=== PATIENT | female | born 1970 | race Two or more races ===

== ENCOUNTER 2016-09-25 19:10 | Inpatient (IN) | payer MEDICAID ==
[~2016-09-25] VITALS: Ht 154.9 cm; Wt 63.5 kg
[~2016-09-25 19:10] MED LIST: AMITRIPTYLINE25 MG ORAL; ARTIFICIAL TEAR15 ML BOTH EYES; CATAPRES0.1 MG ORAL; CATAPRES0.1 MG PO; COLACE100 MG GT; COLACE100 MG ORAL; MIRALAX17 G2 ORAL; MOM30 ML PO; MORPHINE IR15 MG PO; MULTIVITAMINS1 EA11 PO; NITROSTAT0.4 M1 SL; TRAMADOL HCL50 MG PO; TYLENOL325 MG PO; TYLENOL650 MG/20. ORAL; UTI-STAT L3875 MG/31 PO; [UNRECOGNIZED DRUG - OTHER]
[2016-09-25] MEDS ORDERED: NS 1000ml 1,900 ML IVLG ONE (19:15)
--- NOTE | 2016-09-25 19:16 | Emergency Room Report ---
History of Present Illness General Chief Complaint: Abnormal Labs Source: Medical Record, EMS Present Illness HPI Is a 45-year-old female who has a history of CVA and is bed bound. She presents with abnormal lab per EMS and [facility] note, her WBC was 17,000. Patient able to give any other complaint. There is no noted fever chills but no noted coughing congestion. Allergies: Coded Allergies: No Known Allergies (Unverified , 07/09/13) Patient History Past Medical History: see triage record, old chart reviewed, CVA/TIA Past Surgical History: other Pertinent Family History: none Social History: Denies: smoking Immunizations: other Reviewed Nursing Documentation: PMH: Agreed, PSxH: Agreed Nursing Documentation-PMH Hx Cardiac Problems: Yes Hx Hypertension: Yes Hx Diabetes: Yes Hx Gastrointestinal Problems: Yes - GERD,G-tube History Of Psychiatric Problem: Yes - depression Hx Neurological Problems: Yes - skull defect, frontopareital craniectomy Hx Cerebrovascular Accident: Yes Hx Neurologic Surgery: Yes - skull defect, frontopareital craniectomy Review of Systems All Other Systems: limited - Secondary to patient condition. She is nonverbal. Physical Exam Vital Signs Date Time Temp Pulse Resp B/P Pulse Ox O2 Delivery O2 Flow Rate FiO2 09/25/16 19:01 99.3 94 19 116/74 95 Room Air vitals unremarkable [id number] EP Interpretation: reviewed, normal General Appearance: well appearing, no apparent distress, alert, Chronically Ill Head: normocephalic, atraumatic Eyes: bilateral eye EOMI, bilateral eye PERRL ENT: hearing 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, normal pharynx Neck: full range of motion, supple, no meningismus Respiratory: chest non-tender, lungs clear, normal breath sounds Cardiovascular #1: regular rate, rhythm, no murmur Gastrointestinal: normal bowel sounds, non tender, no mass, no organomegaly, no bruit, non-distended Musculoskeletal: back normal, other - Patient is contracted Skin: warm/dry Medical Decision Making Diagnostic Impression: Primary Impression: Acute UTI Additional Impressions: Sepsis Qualified Codes: A41.9 - Sepsis, unspecified organism Proteinuria Qualified Codes: R80.9 - Proteinuria, unspecified Hyperglycemia due to type 2 diabetes mellitus Qualified Codes: E11.65 - Type 2 diabetes mellitus with hyperglycemia ER Course This patient presents with abnormal lab and has UTI. She grew out Proteus mirabilis in 2013 that is resistant to oral medication. Sensitive to IV medication. I gave her a dose of Zosyn here. Blood sugar better after IV fluid. Lactic acid is 2. Will admit for IV fluid and antibiotics. I discussed the case with Dr. Quintanilla who will admit. No evidence of pyelonephritis or abscess. She appeared to be more alert after IV fluid and antibiotic. blood pressure normal. Lab Results Impression labs unremarkable except for elevated glucose Rhythm Strip Diag. Results EP Interpretation: yes Rate: 85 Rhythm: NSR, no PVC's, no ectopy, other Chest X-Ray Diagnostic Results Chest X-Ray Ordered: Yes # of Views/Limited/Complete: 1 View Interpretation: no consolidation, no effusion, no pneumothorax Indication: Other - Confusion Impression: No acute disease Date Electronically Signed: Sep 25, 2016 Time Electronically Signed: 21:47 Interpreting ER Physician: Tye Valentino MD Last Vital Signs Date Time Temp Pulse Resp B/P Pulse Ox O2 Delivery O2 Flow Rate FiO2 09/25/16 19:01 99.3 94 19 116/74 95 Room Air Status: improved Disposition: ADMITTED INPATIENT Condition: Serious TYE VALENTINO M.D. Sep 25, 2016 19:16
[2016-09-25 19:54] LABS: BASOPHILS % (AUTO) 0.7 % (0.0-2.0); EOSINOPHILS % (AUTO) 1.6 % (0.0-3.0); LYMPHOCYTES % (AUTO) 29.8 % (20.0-45.0); MEAN CORPUSCULAR HEMOGLOBIN 30.2 PG (27.0-31.0); MEAN CORPUSCULAR HGB CONC 32.9 G/DL (32.0-36.0); MEAN CORPUSCULAR VOLUME 92 FL (80-99); MONOCYTES % (AUTO) 5.3 % (1.0-10.0); NEUTROPHILS % (AUTO) 62.6 % (45.0-75.0); PLATELET COUNT 269 K/UL (150-450); RED BLOOD COUNT 4.65 M/UL (4.20-5.40); RED CELL DISTRIBUTION WIDTH 11.8 % (11.6-14.8); WHITE BLOOD COUNT 12.2 K/UL (4.8-10.8)
[2016-09-25 20:15] LABS: TROPONIN I < 0.30 ng/mL (<=0.30)
[2016-09-25 20:16] LABS: ALANINE AMINOTRANSFERASE 107 U/L (3-33); ANION GAP 18 (5-15); ASPARTATE AMINO TRANSFERASE 115 U/L (5-40); CALCIUM 9.5 mg/dL (8.6-10.2); CARBON DIOXIDE 24 mEQ/L (20-30); CHLORIDE 100 mEQ/L (98-107); CREATININE 0.7 mg/dL (0.5-0.9); GLOMERULAR FILTRATION RATE > 60 mL/min (>60); HEMOLYSIS 9; SODIUM 142 mEQ/L (135-145); TOTAL PROTEIN 8.7 g/dL (6.6-8.7)
[2016-09-25 20:21] LABS: INR 0.9 (0.9-1.1); PROTHROMBIN TIME 9.9 SEC (9.30-11.50)
[2016-09-25 20:24] LABS: REFLEX LACTIC ACID YES OR NO YES
[2016-09-25 20:26] LABS: CKMB < 1.5 ng/mL (< 3.8)
[2016-09-25 20:45] LABS: APPEARANCE,URINE SLIGHTLY CLOUDY; KETONES,URINE 2+ (NEGATIVE); LEUKOCYTE ESTERASE ,URINE 2+ (NEGATIVE); NITRITE,URINE POSITIVE (NEGATIVE); PH,URINE 6 (4.5-8.0); PROTEIN,URINE 3+ (NEGATIVE); UROBILINOGEN,URINE 4 MG/DL (0.0-1.0)
[2016-09-25 20:48] VITALS: BP 114/64
[2016-09-25] MEDS ORDERED: NS 110 ML ONE (20:55)
[2016-09-25] MEDS ORDERED: Tubing IV Cassette IV ONE (20:55)
[2016-09-25] MEDS ORDERED: Zosyn 3.375gm inj ONE (20:55)
[2016-09-25 20:59] LABS: RBC,URINE 0-2 /HPF (0 - 2); WBC,URINE 20-30 /HPF (0 - 2)
[2016-09-25 21:00] LABS: BACTERIA,URINE MODERATE /HPF; SQUAMOUS EPITHELIAL CELL,UR FEW /LPF (NONE/OCC); YEAST,URINE MODERATE /HPF
[2016-09-25] MEDS ORDERED: Piperacillin/Tazobactam 3.375 GM in NS 110 ML IVPB ONE (21:00)
[2016-09-25] MEDS ORDERED: DuoNeb 0.5-3(2.5)mg/3ml neb HHN PRN (22:00)
[2016-09-25] MEDS ORDERED: Miralax 17gm pkt ORAL PRN (22:00)
[2016-09-25] MEDS ORDERED: Nitroglycerin Subl 0.4mg tab (Bottle Of 25) SL PRN (22:00)
[2016-09-25] MEDS ORDERED: Morphine IR 15mg tab ORAL PRN (22:00)
[2016-09-25] MEDS ORDERED: Morphine Sulfate 2mg/ml Inj IVP PRN (22:00)
[2016-09-25 22:07] VITALS: BP 107/64
[2016-09-25 23:25] VITALS: BP 113/65
[2016-09-26] VITALS: BP 118/77
[2016-09-26 04:00] VITALS: BP 105/66
[2016-09-26] MEDS: Piperacillin/Tazobactam 3.375 GM in NS 110 ML IVPB SCH ×3 (06:14→20:54)
[2016-09-26 07:03] LABS: BASOPHILS % (AUTO) 0.6 % (0.0-2.0); EOSINOPHILS % (AUTO) 1.3 % (0.0-3.0); LYMPHOCYTES % (AUTO) 28.1 % (20.0-45.0); MEAN CORPUSCULAR HEMOGLOBIN 30.6 PG (27.0-31.0); MEAN CORPUSCULAR HGB CONC 33.6 G/DL (32.0-36.0); MEAN CORPUSCULAR VOLUME 91 FL (80-99); MEAN PLATELET VOLUME 8.1 FL (6.5-10.1); MONOCYTES % (AUTO) 5.3 % (1.0-10.0); NEUTROPHILS % (AUTO) 64.7 % (45.0-75.0); PLATELET COUNT 237 K/UL (150-450); RED BLOOD COUNT 4.17 M/UL (4.20-5.40); WHITE BLOOD COUNT 13.9 K/UL (4.8-10.8)
[2016-09-26 07:25] LABS: ALANINE AMINOTRANSFERASE 79 U/L (3-33); ALBUMIN/GLOBULIN RATIO 0.9 (1.0-2.7); ANION GAP 14 (5-15); ASPARTATE AMINO TRANSFERASE 73 U/L (5-40); CALCIUM 8.2 mg/dL (8.6-10.2); CARBON DIOXIDE 22 mEQ/L (20-30); CHLORIDE 109 mEQ/L (98-107); CREATININE 0.6 mg/dL (0.5-0.9); GLOMERULAR FILTRATION RATE > 60 mL/min (>60); HEMOLYSIS 4; POTASSIUM 3.8 mEQ/L (3.4-4.9); SODIUM 145 mEQ/L (135-145); TOTAL PROTEIN 7.2 g/dL (6.6-8.7)
[2016-09-26 08:00] VITALS: BP 99/56
--- NOTE | 2016-09-26 08:04 | History and Physical ---
History of Present Illness General Date patient seen: Sep 26, 2016 Time patient seen: 07:30 Reason for Hospitalization: sepsis Present Illness HPI 45-year-old female with PMH of CVA, craniectomy, DM, HTN, dysphagia, G tube presented with abnormal lab per EMS and detention note, WBC in SNF was 17,000, started on broad spectrum abx and as transferred for further evaluation Patient unable to provide any info No reports of fever, chills, no noted coughing or congestion Workup in ED revealed low grade fever-99.3, leukocytosis-12.2 lactic acid WNL pulse ox stable on RA troponin negative UA grossly positive for UTI CXR no acute cardiopulmonary pathology elevated LFT: AST 115 and ALT 107 BS -357 In ED IV fluids provided, BS improved, patient was pancultured and started on empiric abx Patient was admitted for further management . Allergies: Coded Allergies: No Known Allergies (Unverified , 07/09/13) Medication History Scheduled Amitriptyline HCl (Elavil*), 25 MG ORAL BEDTIME, (Reported) Clonidine Hcl* (Catapres*), 0.1 MG PO Q8HR, (Reported) Clonidine Hcl* (Catapres*), 0.1 MG ORAL EVERY 8 HOURS, (Reported) Cran/Vitc/Mannose/Inulin/Brom (Uti-Stat Liquid), 30 PO DAILY, (Reported) Docusate Sodium* (Colace*), 100 MG GT DAILY, (Reported) Docusate Sodium* (Colace*), 100 MG ORAL DAILY, (Reported) Magnesium Hydroxide (Milk of Magnesia), 30 ML PO HS, (Reported) Multivitamin (Multivitamins), 1 CAP PO DAILY, (Reported) Polyethylene Glycol 3350* (Miralax*), 17 GM ORAL DAILY, (Reported) Scheduled PRN Acetaminophen (Tylenol), 650 MG PO Q6H PRN for For Pain, (Reported) Acetaminophen (Acetaminophen), 650 MG ORAL Q4HR PRN for Prn Headache/Temp > 101, (Reported) Dextran 70/Hypromellose (Artificial Tears Eye Drops*), 1 DROP BOTH EYES DAILY PRN for Itching, (Reported) Morphine HCl (Morphine Sulfate ER), 15 MG PO Q6H PRN for For Pain, (Reported) Nitroglycerin (Nitrostat), 0.4 MG SL Q5M X3 DOSES PRN for For Pain, (Reported) Tramadol Hcl* (Ultram*), 50 MG PO DAILY PRN for For Pain, (Reported) Miscellaneous Medications [Novolog Scale], (Reported) Patient History Limited by: medical condition Healthcare decision maker THAD GARCIA Resuscitation status Full Code Advanced Directive on File No Past Medical/Surgical History Past Medical/Surgical History: (1) HTN (hypertension) (2) Diabetes (3) Dysphagia (4) History of CVA (cerebrovascular accident) (5) History of craniotomy (6) G tube feedings (7) Aphasia Review of Systems ROS Narrative unable to obtain due to ALOC Physical Exam General Appearance: alert, other - aphasic but responds with nodding her head and eyes Lines, tubes and drains: peripheral HEENT: anicteric, other - craniectomy defect Neck: supple Respiratory/Chest: lungs clear, no respiratory distress, no accessory muscle use Cardiovascular/Chest: normal peripheral pulses, normal rate, regular rhythm Abdomen: normal bowel sounds, non tender, soft, other - G tube Extremities: other - spastic LE Neurologic: alert - aphasic, responsive, bedridden,. Last 24 Hour Vital Signs Date Time Temp Pulse Resp B/P Pulse Ox O2 Delivery O2 Flow Rate FiO2 09/26/16 06:00 113/71 09/26/16 04:00 98.4 81 20 105/66 92 Room Air 09/26/16 00:20 101/72 09/26/16 00:00 97.9 91 20 118/77 Room Air 09/25/16 23:58 98.7 82 21 113/65 95 Room Air 09/25/16 23:25 82 21 113/65 95 Room Air 09/25/16 22:07 83 18 107/64 96 Room Air 09/25/16 20:48 98.7 85 14 114/64 97 Room Air 09/25/16 19:01 99.3 94 19 116/74 95 Room Air Intake and Output 09/25/16 09/26/16 19:00 07:00 Intake Total 2010 ml Output Total 750 ml Balance 1260 ml Intake IV Total 2010 ml Output Urine Total 750 ml Laboratory Tests Test 09/25/16 19:45 09/25/16 20:05 09/26/16 06:00 09/26/16 06:20 White Blood Count 12.2 K/UL (4.8-10.8) H 13.9 K/UL (4.8-10.8) H Red Blood Count 4.65 M/UL (4.20-5.40) 4.17 M/UL (4.20-5.40) L Hemoglobin 14.1 G/DL (12.0-16.0) 12.8 G/DL (12.0-16.0) Hematocrit 42.7 % (37.0-47.0) 37.9 % (37.0-47.0) Mean Corpuscular Volume 92 FL (80-99) 91 FL (80-99) Mean Corpuscular Hemoglobin 30.2 PG (27.0-31.0) 30.6 PG (27.0-31.0) Mean Corpuscular Hemoglobin Concent 32.9 G/DL (32.0-36.0) 33.6 G/DL (32.0-36.0) Red Cell Distribution Width 11.8 % (11.6-14.8) 12.0 % (11.6-14.8) Platelet Count 269 K/UL (150-450) 237 K/UL (150-450) Mean Platelet Volume 8.0 FL (6.5-10.1) 8.1 FL (6.5-10.1) Neutrophils (%) (Auto) 62.6 % (45.0-75.0) 64.7 % (45.0-75.0) Lymphocytes (%) (Auto) 29.8 % (20.0-45.0) 28.1 % (20.0-45.0) Monocytes (%) (Auto) 5.3 % (1.0-10.0) 5.3 % (1.0-10.0) Eosinophils (%) (Auto) 1.6 % (0.0-3.0) 1.3 % (0.0-3.0) Basophils (%) (Auto) 0.7 % (0.0-2.0) 0.6 % (0.0-2.0) Prothrombin Time 9.9 SEC (9.30-11.50) Prothromb Time International Ratio 0.9 (0.9-1.1) Activated Partial Thromboplast Time 20 SEC (23-33) L Sodium Level 142 mEQ/L (135-145) 145 mEQ/L (135-145) Potassium Level 4.0 mEQ/L (3.4-4.9) 3.8 mEQ/L (3.4-4.9) Chloride Level 100 mEQ/L (98-107) 109 mEQ/L (98-107) H Carbon Dioxide Level 24 mEQ/L (20-30) 22 mEQ/L (20-30) Anion Gap 18 (5-15) H 14 (5-15) Blood Urea Nitrogen 21 mg/dL (7-23) 15 mg/dL (7-23) Creatinine 0.7 mg/dL (0.5-0.9) 0.6 mg/dL (0.5-0.9) Estimat Glomerular Filtration Rate > 60 mL/min (>60) > 60 mL/min (>60) Glucose Level 357 mg/dL (74-106) H 252 mg/dL (74-106) #H Lactic Acid Level 2.00 mmol/L (0.66-2.22) Calcium Level 9.5 mg/dL (8.6-10.2) 8.2 mg/dL (8.6-10.2) L Total Bilirubin 0.3 mg/dL (0.0-1.2) 0.3 mg/dL (0.0-1.2) Aspartate Amino Transf (AST/SGOT) 115 U/L (5-40) H 73 U/L (5-40) H Alanine Aminotransferase (ALT/SGPT) 107 U/L (3-33) H 79 U/L (3-33) H Alkaline Phosphatase 95 U/L (35-104) 77 U/L (35-104) Total Creatine Kinase 37 U/L (26-140) Creatine Kinase MB < 1.5 ng/mL (< 3.8) Creatine Kinase MB Relative Index Troponin I < 0.30 ng/mL (<=0.30) Total Protein 8.7 g/dL (6.6-8.7) 7.2 g/dL (6.6-8.7) Albumin 4.4 g/dL (3.5-5.2) 3.5 g/dL (3.5-5.2) Globulin 4.3 g/dL 3.7 g/dL Albumin/Globulin Ratio 1.0 (1.0-2.7) 0.9 (1.0-2.7) L Urine Color Yellow Urine Appearance Slightly cloudy Urine pH 6 (4.5-8.0) Urine Specific [place] 1.020 (1.005-1.035) Urine Protein 3+ (NEGATIVE) H Urine Glucose (UA) 3+ (NEGATIVE) H Urine Ketones 2+ (NEGATIVE) H Urine Occult Blood 4+ (NEGATIVE) H Urine Nitrite Positive (NEGATIVE) H Urine Bilirubin Negative (NEGATIVE) Urine Urobilinogen 4 MG/DL (0.0-1.0) H Urine Leukocyte Esterase 2+ (NEGATIVE) H Urine RBC 0-2 /HPF (0 - 2) Urine WBC 20-30 /HPF (0 - 2) H Urine Squamous Epithelial Cells Few /LPF (NONE/OCC) Urine Bacteria Moderate /HPF (NONE) H Urine Yeast Moderate /HPF (NONE) H Height (Feet): 5 Height (Inches): 1.00 Weight (Pounds): 140 Medications Current Medications Medications (Trade) Dose Ordered Sig/Lenka Route PRN Reason Start Time Stop Time Status Last Admin Dose Admin Acetaminophen (Tylenol) 650 mg Q4H PRN ORAL fever 09/25/16 22:00 10/25/16 21:59 Albuterol/ Ipratropium (DuoNeb 0.5-3(2.5)mg/3ml) 3 ml Q4H PRN HHN Shortness of Breath 09/25/16 22:00 09/30/16 21:59 Amitriptyline HCl (Elavil) 25 mg BEDTIME ORAL 09/26/16 21:00 10/26/16 20:59 Clonidine HCl (Catapres) 0.1 mg EVERY 8 HOURS ORAL 09/26/16 00:00 10/26/16 00:00 Heparin Sodium (Porcine) (Heparin 5000 units/ml) 5,000 units EVERY 12 HOURS SUBQ 09/26/16 09:00 10/26/16 08:59 Morphine HCl (Morphine IR) 15 mg Q6H PRN ORAL For Pain 09/25/16 22:00 10/02/16 21:59 Morphine Sulfate (Morphine Sulfate) 2 mg Q4H PRN IVP Moderate Pain (Pain Scale 4-6) 09/25/16 22:00 10/02/16 21:59 Nitroglycerin 0.4 mg 0.4 mg Every 5 Minutes PRN SL Prn Chest Pain 09/25/16 22:00 10/25/16 21:59 Ondansetron HCl (Zofran) 4 mg Q6H PRN IVP Nausea & Vomiting 09/25/16 22:00 10/25/16 21:59 Piperacillin Sod/ Tazobactam Sod/ Sodium Chloride (Zosyn/Sodium Chloride) 110 ml @ 27.5 mls/hr EVERY 8 HOURS IVPB 09/26/16 06:00 10/03/16 05:59 09/26/16 06:14 Polyethylene Glycol (Miralax) 17 gm DAILYPRN PRN ORAL Constipation 09/25/16 22:00 10/25/16 21:59 Temazepam (Restoril) 15 mg HSPRN PRN ORAL Insomnia 09/25/16 22:00 10/02/16 21:59 Assessment/Plan Assessment/Plan ASSESSMENT probable sepsis UTI acute on chronic encephalopathy hyperglycemia DOOC transaminitis dysphagia, G tube HTN Hx of CVA with craniectomy proteinuria PLAN OF CARE [facility] floor empiric abx fup with cx ID consult acute encephalopathy likely 2 to sepsis BS management with SS of insulin, check HgA1c, likely hyperglycemia was precipitated by infection monitor LFT, abdominal US, hepatitis panel, possible shocked liver BP management with Clonidine and optimize further as needed strict aspiration precautions, GT feeding, monitor tolerance gentle IVF proteinuria possibly due to diabetic nephropathy DVT prophylaxis bowel regimen pain management wound nurse eval case discussed and evaluated by supervising physician Bennie Lucas),Josephine CHOU Sep 26, 2016 08:04
[2016-09-26] MEDS: Heparin 5000 units/ml inj SUBQ SCH ×2 (08:23→20:48)
[2016-09-26 08:26] LABS: APPEARANCE,URINE CLEAR; KETONES,URINE NEGATIVE (NEGATIVE); LEUKOCYTE ESTERASE ,URINE 1+ (NEGATIVE); NITRITE,URINE NEGATIVE (NEGATIVE); PH,URINE 6 (4.5-8.0); PROTEIN,URINE 2+ (NEGATIVE); UROBILINOGEN,URINE 4 MG/DL (0.0-1.0)
[2016-09-26 08:43] LABS: BACTERIA,URINE FEW /HPF; MUCUS,URINE FEW /LPF (NONE/OCC); SQUAMOUS EPITHELIAL CELL,UR FEW /LPF (NONE/OCC)
[2016-09-26 08:46] LABS: YEAST,URINE FEW /HPF
--- NOTE | 2016-09-26 09:47 | Diagnostic Imaging Report ---
Indication: Abdominal pain and weakness Technique: Ultrasound of the abdomen. Comparison: None Findings: The pancreas is incompletely visualized. Visualized portions are unremarkable. There is increased echogenicity of the liver. Liver is enlarged measuring 19.7 cm.. No focal liver lesions are identified. Visualized portions of the main portal vein and the hepatic veins are grossly unremarkable although incompletely evaluated. Gallbladder with wall measures 3 mm. There is echogenic shadowing in the gallbladder fossa. Sonographic Palomo sign is negative. Bilateral kidneys demonstrate normal echogenicity. No focal renal lesions are seen. There is no hydronephrosis. No echogenic renal stones are identified. The spleen is normal in size and echogenicity. The visualized aorta is normal in caliber. Visualized portions of the inferior vena cava are unremarkable. Impression: Echogenic shadowing in the gallbladder fossa. In the absence of prior surgery, findings are suggestive of a gallbladder full of stones. Clinical correlation recommended. Fatty and enlarged liver.
--- NOTE | 2016-09-26 10:08 | Diagnostic Imaging Report ---
Indication: Shortness of breath Technique: XRAY CHEST 1 V Comparison: None Findings: Patient rotation limits evaluation. Cardiomediastinal silhouette is grossly within normal limits. There is no obvious consolidation or pleural effusion. Atherosclerotic changes are present. Osseous structures demonstrate no acute abnormality. Impression: Limited examination without obvious acute cardiopulmonary disease.
[2016-09-26] MEDS ORDERED: Acetaminophen 650mg/20.3ml GT PRN (11:00)
[2016-09-26] MEDS ORDERED: Miralax 17gm pkt GT PRN (11:00)
--- NOTE | 2016-09-26 11:11 | Infectious Diseases Prog Note ---
Assessment/Plan Assessment/Plan ID consult dictated # [id number] Subjective Allergies: Coded Allergies: No Known Allergies (Unverified , 07/09/13) Objective Vital Signs Last 24 Hour Vital Signs Date Time Temp Pulse Resp B/P Pulse Ox O2 Delivery O2 Flow Rate FiO2 09/26/16 08:00 97.9 70 16 99/56 97 Room Air 09/26/16 06:00 113/71 09/26/16 04:00 98.4 81 20 105/66 92 Room Air 09/26/16 00:20 101/72 09/26/16 00:00 97.9 91 20 118/77 Room Air 09/25/16 23:58 98.7 82 21 113/65 95 Room Air 09/25/16 23:25 82 21 113/65 95 Room Air 09/25/16 22:07 83 18 107/64 96 Room Air 09/25/16 20:48 98.7 85 14 114/64 97 Room Air 09/25/16 19:01 99.3 94 19 116/74 95 Room Air Height (Feet): 5 Height (Inches): 1.00 Weight (Pounds): 140 Microbiology Date/Time Source Procedure Growth Status 09/25/16 20:05 Urine,Clean Catch Urine Culture - Preliminary NO GROWTH Resulted Laboratory Tests Test 09/25/16 19:45 09/25/16 20:05 09/26/16 06:00 09/26/16 06:20 White Blood Count 12.2 K/UL (4.8-10.8) H 13.9 K/UL (4.8-10.8) H Red Blood Count 4.65 M/UL (4.20-5.40) 4.17 M/UL (4.20-5.40) L Hemoglobin 14.1 G/DL (12.0-16.0) 12.8 G/DL (12.0-16.0) Hematocrit 42.7 % (37.0-47.0) 37.9 % (37.0-47.0) Mean Corpuscular Volume 92 FL (80-99) 91 FL (80-99) Mean Corpuscular Hemoglobin 30.2 PG (27.0-31.0) 30.6 PG (27.0-31.0) Mean Corpuscular Hemoglobin Concent 32.9 G/DL (32.0-36.0) 33.6 G/DL (32.0-36.0) Red Cell Distribution Width 11.8 % (11.6-14.8) 12.0 % (11.6-14.8) Platelet Count 269 K/UL (150-450) 237 K/UL (150-450) Mean Platelet Volume 8.0 FL (6.5-10.1) 8.1 FL (6.5-10.1) Neutrophils (%) (Auto) 62.6 % (45.0-75.0) 64.7 % (45.0-75.0) Lymphocytes (%) (Auto) 29.8 % (20.0-45.0) 28.1 % (20.0-45.0) Monocytes (%) (Auto) 5.3 % (1.0-10.0) 5.3 % (1.0-10.0) Eosinophils (%) (Auto) 1.6 % (0.0-3.0) 1.3 % (0.0-3.0) Basophils (%) (Auto) 0.7 % (0.0-2.0) 0.6 % (0.0-2.0) Prothrombin Time 9.9 SEC (9.30-11.50) Prothromb Time International Ratio 0.9 (0.9-1.1) Activated Partial Thromboplast Time 20 SEC (23-33) L Sodium Level 142 mEQ/L (135-145) 145 mEQ/L (135-145) Potassium Level 4.0 mEQ/L (3.4-4.9) 3.8 mEQ/L (3.4-4.9) Chloride Level 100 mEQ/L (98-107) 109 mEQ/L (98-107) H Carbon Dioxide Level 24 mEQ/L (20-30) 22 mEQ/L (20-30) Anion Gap 18 (5-15) H 14 (5-15) Blood Urea Nitrogen 21 mg/dL (7-23) 15 mg/dL (7-23) Creatinine 0.7 mg/dL (0.5-0.9) 0.6 mg/dL (0.5-0.9) Estimat Glomerular Filtration Rate > 60 mL/min (>60) > 60 mL/min (>60) Glucose Level 357 mg/dL (74-106) H 252 mg/dL (74-106) #H Lactic Acid Level 2.00 mmol/L (0.66-2.22) Calcium Level 9.5 mg/dL (8.6-10.2) 8.2 mg/dL (8.6-10.2) L Total Bilirubin 0.3 mg/dL (0.0-1.2) 0.3 mg/dL (0.0-1.2) Aspartate Amino Transf (AST/SGOT) 115 U/L (5-40) H 73 U/L (5-40) H Alanine Aminotransferase (ALT/SGPT) 107 U/L (3-33) H 79 U/L (3-33) H Alkaline Phosphatase 95 U/L (35-104) 77 U/L (35-104) Total Creatine Kinase 37 U/L (26-140) Creatine Kinase MB < 1.5 ng/mL (< 3.8) Creatine Kinase MB Relative Index Troponin I < 0.30 ng/mL (<=0.30) Total Protein 8.7 g/dL (6.6-8.7) 7.2 g/dL (6.6-8.7) Albumin 4.4 g/dL (3.5-5.2) 3.5 g/dL (3.5-5.2) Globulin 4.3 g/dL 3.7 g/dL Albumin/Globulin Ratio 1.0 (1.0-2.7) 0.9 (1.0-2.7) L Urine Color Yellow Urine Appearance Slightly cloudy Urine pH 6 (4.5-8.0) Urine Specific [place] 1.020 (1.005-1.035) Urine Protein 3+ (NEGATIVE) H Urine Glucose (UA) 3+ (NEGATIVE) H Urine Ketones 2+ (NEGATIVE) H Urine Occult Blood 4+ (NEGATIVE) H Urine Nitrite Positive (NEGATIVE) H Urine Bilirubin Negative (NEGATIVE) Urine Urobilinogen 4 MG/DL (0.0-1.0) H Urine Leukocyte Esterase 2+ (NEGATIVE) H Urine RBC 0-2 /HPF (0 - 2) Urine WBC 20-30 /HPF (0 - 2) H Urine Squamous Epithelial Cells Few /LPF (NONE/OCC) Urine Bacteria Moderate /HPF (NONE) H Urine Yeast Moderate /HPF (NONE) H Test 6/18/17 07:00 Urine Color Yellow Urine Appearance Clear Urine pH 6 (4.5-8.0) Urine Specific [place] 1.020 (1.005-1.035) Urine Protein 2+ (NEGATIVE) H Urine Glucose (UA) Negative (NEGATIVE) Urine Ketones Negative (NEGATIVE) Urine Occult Blood 4+ (NEGATIVE) H Urine Nitrite Negative (NEGATIVE) Urine Bilirubin Negative (NEGATIVE) Urine Urobilinogen 4 MG/DL (0.0-1.0) H Urine Leukocyte Esterase 1+ (NEGATIVE) H Urine RBC 5-10 /HPF (0 - 2) H Urine WBC 5-10 /HPF (0 - 2) H Urine Squamous Epithelial Cells Few /LPF (NONE/OCC) Urine Bacteria Few /HPF (NONE) Urine Mucus Few /LPF (NONE/OCC) H Urine Yeast Few /HPF (NONE) H Current Medications Medications (Trade) Dose Ordered Sig/Lenka Route PRN Reason Start Time Stop Time Status Last Admin Dose Admin Acetaminophen (Tylenol) 650 mg Q4H PRN GT T>100.5 09/26/16 11:00 10/26/16 10:59 Albuterol/ Ipratropium (DuoNeb 0.5-3(2.5)mg/3ml) 3 ml Q4H PRN HHN Shortness of Breath 09/25/16 22:00 09/30/16 21:59 Amitriptyline HCl (Elavil) 25 mg BEDTIME GT 09/26/16 21:00 10/26/16 20:59 Clonidine HCl (Catapres) 0.1 mg EVERY 8 HOURS GT 09/26/16 14:00 10/26/16 13:59 Dextrose STAT PRN IV Hypoglycemia 09/26/16 08:15 10/26/16 08:14 Heparin Sodium (Porcine) (Heparin 5000 units/ml) 5,000 units EVERY 12 HOURS SUBQ 09/26/16 09:00 10/26/16 08:59 09/26/16 08:23 Insulin Aspart (NovoLOG) BEFORE MEALS AND HS SUBQ 09/26/16 11:30 10/26/16 11:29 Morphine HCl (Morphine IR) 15 mg Q6H PRN ORAL For Pain 09/25/16 22:00 10/02/16 21:59 Morphine Sulfate (Morphine Sulfate) 2 mg Q4H PRN IVP Moderate Pain (Pain Scale 4-6) 09/25/16 22:00 10/02/16 21:59 Nitroglycerin 0.4 mg 0.4 mg Every 5 Minutes PRN SL Prn Chest Pain 09/25/16 22:00 10/25/16 21:59 Ondansetron HCl (Zofran) 4 mg Q6H PRN IVP Nausea & Vomiting 09/25/16 22:00 10/25/16 21:59 Piperacillin Sod/ Tazobactam Sod/ Sodium Chloride (Zosyn/Sodium Chloride) 110 ml @ 27.5 mls/hr EVERY 8 HOURS IVPB 09/26/16 06:00 10/03/16 05:59 09/26/16 06:14 Polyethylene Glycol (Miralax) 17 gm DAILYPRN PRN GT Constipation 09/26/16 11:00 10/26/16 10:59 Sodium Chloride (0.45% NS 1000ml) 1,000 ml @ 50 mls/hr Q20H IV 09/26/16 08:30 10/26/16 08:29 09/26/16 08:40 Temazepam (Restoril) 15 mg HSPRN PRN GT Insomnia 09/26/16 21:00 10/03/16 20:59 RUKHSANA FAUST Sep 26, 2016 11:11
[2016-09-26] MEDS: NovoLOG Insulin Flexpen SUBQ SCH ×3 (11:35→20:45)
[2016-09-26 12:00] VITALS: BP 110/66
[2016-09-26] MEDS ORDERED: NS 275ml ONE (15:58)
[2016-09-26] MEDS ORDERED: 1/2 NS 1000ml IV ONE (15:59)
[2016-09-26] MEDS ORDERED: NS Irrig 1000ml ONE (15:59)
[2016-09-26] MEDS ORDERED: D5 1/2NS 1000ml IV ONE (15:59)
[2016-09-26 16:00] VITALS: BP 103/60
[2016-09-26 20:00] VITALS: BP 97/46
--- NOTE | 2016-09-26 23:15 | Consultation ---
DATE OF CONSULTATION: 09/26/2016 INFECTIOUS DISEASE CONSULT CONSULTING PHYSICIAN: ATTENDING PHYSICIAN: Sanjay Quintanilla M.D. REFERRING PHYSICIAN: REASON FOR CONSULTATION: UTI. HISTORY OF PRESENT ILLNESS: This is a 45-year-old who is a [facility] resident admitted yesterday with leukocytosis. The patient is nonverbal and cannot provide any history. There was no fever in the hospital. PAST MEDICAL HISTORY: Significant for CVA, diabetes mellitus, and hypertension. PAST SURGICAL HISTORY: Status post craniotomy and G-tube placement. ALLERGIES: No known drug allergies. MEDICATIONS: Amitriptyline, temazepam, clonidine, insulin, Tylenol, MiraLax, heparin, Zosyn, morphine, DuoNeb inhaler, and Zofran. SOCIAL HISTORY: [facility] resident. No history of alcohol, drug abuse, or smoking. PHYSICAL EXAMINATION: VITAL SIGNS: Temperature 97.9 degrees, pulse 70, and blood pressure 99/66. GENERAL APPEARANCE: No acute distress, sleeping and snoring. HEAD AND NECK: [place] conjunctivae. HEART: Regular. LUNGS: Clear. ABDOMEN: Soft and nontender. EXTREMITIES: No edema. LABORATORY DATA: WBC 13.9, hemoglobin 12.8, hematocrit 37.9, and platelets 237,000. Sodium 145, potassium 3.8, chloride 109, bicarb 22, BUN 15, creatinine 0.6, glucose 252. AST is elevated at 72, ALT 79. Bilirubin 0.3. Chest x-ray was negative. Abdominal ultrasound showed cholelithiasis and fatty liver. Blood culture so far is negative. UA shows WBC 5-10, leukocyte esterase positive. IMPRESSION: Pyuria and leukocytosis secondary to urinary tract infection. The patient also has cholelithiasis without positive Palomo sign in abdominal ultrasound. The patient has diabetes mellitus, has hypertension, and status post cerebrovascular accident. RECOMMENDATION: Continue with Zosyn. We will follow up the cultures. I thank Dr. Quintanilla for involving me in the care of this patient. Gianfranco Lugo M.D. DR: CAROLINA JOB#: [id number] CC: [facility]
[2016-09-27] VITALS (7 sets, daily range): BP systolic 98–128; BP diastolic 58–73
[2016-09-27] MEDS: Piperacillin/Tazobactam 3.375 GM in NS 110 ML IVPB SCH ×3 (06:11→21:44)
[2016-09-27] MEDS: NovoLOG Insulin Flexpen SUBQ SCH ×4 (06:22→21:40)
[2016-09-27 07:57] LABS: BASOPHILS % (AUTO) 0.6 % (0.0-2.0); EOSINOPHILS % (AUTO) 2.8 % (0.0-3.0); LYMPHOCYTES % (AUTO) 37.8 % (20.0-45.0); MEAN CORPUSCULAR HEMOGLOBIN 30.3 PG (27.0-31.0); MEAN CORPUSCULAR HGB CONC 33.4 G/DL (32.0-36.0); MEAN CORPUSCULAR VOLUME 91 FL (80-99); MEAN PLATELET VOLUME 8.4 FL (6.5-10.1); MONOCYTES % (AUTO) 5.5 % (1.0-10.0); NEUTROPHILS % (AUTO) 53.2 % (45.0-75.0); PLATELET COUNT 216 K/UL (150-450); RED BLOOD COUNT 3.99 M/UL (4.20-5.40); RED CELL DISTRIBUTION WIDTH 11.7 % (11.6-14.8); WHITE BLOOD COUNT 10.1 K/UL (4.8-10.8)
[2016-09-27 08:21] LABS: HEMOGLOBIN A1C 8.5 % (< 6.0)
[2016-09-27] MEDS: Heparin 5000 units/ml inj SUBQ SCH ×2 (08:21→21:03)
[2016-09-27 08:22] LABS: ALANINE AMINOTRANSFERASE 67 U/L (3-33); ANION GAP 15 (5-15); ASPARTATE AMINO TRANSFERASE 56 U/L (5-40); CALCIUM 8.4 mg/dL (8.6-10.2); CARBON DIOXIDE 22 mEQ/L (20-30); CHLORIDE 104 mEQ/L (98-107); CHOLESTEROL 162 mg/dL (< 200); CREATININE 0.5 mg/dL (0.5-0.9); GLOMERULAR FILTRATION RATE > 60 mL/min (>60); HEMOLYSIS 4; LDL CHOLESTEROL (CALC.) 101 mg/dL (60-99); POTASSIUM 3.6 mEQ/L (3.4-4.9); SODIUM 141 mEQ/L (135-145)
--- NOTE | 2016-09-27 10:45 | Infectious Diseases Prog Note ---
Assessment/Plan Assessment/Plan A: This is a 45-year-old UTI , probable UCx : mixed GNR Leukocytosis, SP Chest x-ray was negative ultrasound : Cholelithiasis and fatty liver CVA Diabetes mellitus HTN Hypertension Status post cerebrovascular accident Status post craniotomy SP PEG P: cont Zosyn d # 2 / 7 , upon DC will change to Rocephin to complete the course Monitor CBC Monitor BMP Monitor cx ( Bl ) Monitor Cxray Subjective Allergies: Coded Allergies: No Known Allergies (Unverified , 07/09/13) Objective Vital Signs Last 24 Hour Vital Signs Date Time Temp Pulse Resp B/P Pulse Ox O2 Delivery O2 Flow Rate FiO2 09/27/16 08:15 97.9 71 20 117/72 99 Room Air 09/27/16 06:00 98/60 09/27/16 04:21 97.5 68 17 98/60 96 Room Air 09/27/16 00:20 98.1 65 19 99/58 97 Room Air 09/26/16 21:41 97/46 09/26/16 20:00 97.9 67 18 97/46 97 Room Air 09/26/16 16:00 97.9 74 18 103/60 97 Room Air 09/26/16 14:18 97.7 09/26/16 13:41 110/66 09/26/16 12:00 97.7 78 17 110/66 96 Room Air Height (Feet): 5 Height (Inches): 1.00 Weight (Pounds): 140 Microbiology Date/Time Source Procedure Growth Status 09/25/16 19:45 Blood Blood Culture - Preliminary NO GROWTH AFTER 24 HOURS Resulted 09/25/16 19:35 Blood Blood Culture - Preliminary NO GROWTH AFTER 24 HOURS Resulted 09/26/16 07:00 Indwelling Cath Urine Culture - Preliminary NO GROWTH AFTER 24 HOURS Resulted 09/25/16 20:05 Urine,Clean Catch Urine Culture - Preliminary Mixed Gram Positive Organism Resulted Laboratory Tests Test 09/27/16 07:00 White Blood Count 10.1 K/UL (4.8-10.8) Red Blood Count 3.99 M/UL (4.20-5.40) L Hemoglobin 12.1 G/DL (12.0-16.0) Hematocrit 36.2 % (37.0-47.0) L Mean Corpuscular Volume 91 FL (80-99) Mean Corpuscular Hemoglobin 30.3 PG (27.0-31.0) Mean Corpuscular Hemoglobin Concent 33.4 G/DL (32.0-36.0) Red Cell Distribution Width 11.7 % (11.6-14.8) Platelet Count 216 K/UL (150-450) Mean Platelet Volume 8.4 FL (6.5-10.1) Neutrophils (%) (Auto) 53.2 % (45.0-75.0) Lymphocytes (%) (Auto) 37.8 % (20.0-45.0) Monocytes (%) (Auto) 5.5 % (1.0-10.0) Eosinophils (%) (Auto) 2.8 % (0.0-3.0) Basophils (%) (Auto) 0.6 % (0.0-2.0) Sodium Level 141 mEQ/L (135-145) Potassium Level 3.6 mEQ/L (3.4-4.9) Chloride Level 104 mEQ/L (98-107) Carbon Dioxide Level 22 mEQ/L (20-30) Anion Gap 15 (5-15) Blood Urea Nitrogen 13 mg/dL (7-23) Creatinine 0.5 mg/dL (0.5-0.9) Estimat Glomerular Filtration Rate > 60 mL/min (>60) Glucose Level 301 mg/dL (74-106) H Hemoglobin A1c 8.5 % (< 6.0) H Calcium Level 8.4 mg/dL (8.6-10.2) L Total Bilirubin < 0.2 mg/dL (0.0-1.2) Aspartate Amino Transf (AST/SGOT) 56 U/L (5-40) H Alanine Aminotransferase (ALT/SGPT) 67 U/L (3-33) H Alkaline Phosphatase 76 U/L (35-104) Total Protein 7.0 g/dL (6.6-8.7) Albumin 3.5 g/dL (3.5-5.2) Globulin 3.5 g/dL Albumin/Globulin Ratio 1.0 (1.0-2.7) Triglycerides Level 190 mg/dL (< 150) H Cholesterol Level 162 mg/dL (< 200) LDL Cholesterol 101 mg/dL (60-99) H HDL Cholesterol 23 mg/dL (> 60) Cholesterol/HDL Ratio 7.0 (3.3-4.4) H Thyroid Stimulating Hormone (TSH) 2.730 uIU/mL (0.300-4.500) Hepatitis A IgM Antibody Pending Hepatitis B Surface Antigen Pending Hepatitis B Core IgM Antibody Pending Hepatitis C Antibody Pending Current Medications Medications (Trade) Dose Ordered Sig/Lenka Route PRN Reason Start Time Stop Time Status Last Admin Dose Admin Acetaminophen (Tylenol) 650 mg Q4H PRN GT T>100.5 09/26/16 11:00 10/26/16 10:59 09/26/16 13:48 Albuterol/ Ipratropium (DuoNeb 0.5-3(2.5)mg/3ml) 3 ml Q4H PRN HHN Shortness of Breath 09/25/16 22:00 09/30/16 21:59 Amitriptyline HCl (Elavil) 25 mg BEDTIME GT 09/26/16 21:00 10/26/16 20:59 09/26/16 20:51 Clonidine HCl (Catapres) 0.1 mg EVERY 8 HOURS GT 09/26/16 14:00 10/26/16 13:59 Dextrose STAT PRN IV Hypoglycemia 09/26/16 08:15 10/26/16 08:14 Heparin Sodium (Porcine) (Heparin 5000 units/ml) 5,000 units EVERY 12 HOURS SUBQ 09/26/16 09:00 10/26/16 08:59 09/27/16 08:21 Insulin Aspart (NovoLOG) BEFORE MEALS AND HS SUBQ 09/26/16 11:30 10/26/16 11:29 09/27/16 06:22 Morphine HCl (Morphine IR) 15 mg Q6H PRN ORAL For Pain 09/25/16 22:00 10/02/16 21:59 Morphine Sulfate (Morphine Sulfate) 2 mg Q4H PRN IVP Moderate Pain (Pain Scale 4-6) 09/25/16 22:00 10/02/16 21:59 Nitroglycerin 0.4 mg 0.4 mg Every 5 Minutes PRN SL Prn Chest Pain 09/25/16 22:00 10/25/16 21:59 Ondansetron HCl (Zofran) 4 mg Q6H PRN IVP Nausea & Vomiting 09/25/16 22:00 10/25/16 21:59 Piperacillin Sod/ Tazobactam Sod/ Sodium Chloride (Zosyn/Sodium Chloride) 110 ml @ 27.5 mls/hr EVERY 8 HOURS IVPB 09/26/16 06:00 10/03/16 05:59 09/27/16 06:11 Polyethylene Glycol (Miralax) 17 gm DAILYPRN PRN GT Constipation 09/26/16 11:00 10/26/16 10:59 Sodium Chloride (0.45% NS 1000ml) 1,000 ml @ 50 mls/hr Q20H IV 09/26/16 08:30 10/26/16 08:29 09/27/16 04:37 Temazepam (Restoril) 15 mg HSPRN PRN GT Insomnia 09/26/16 21:00 10/03/16 20:59 MELVIN VERA M.D. Sep 27, 2016 10:45
--- NOTE | 2016-09-27 18:38 | Pulmonology Progress Note ---
Assessment/Plan Problems: (1) Sepsis (2) Diabetes (3) G tube feedings (4) History of craniotomy (5) History of CVA (cerebrovascular accident) Assessment/Plan continue abx check cultures tolerating feeding dvt prophylaxis Subjective ROS Limited/Unobtainable: Yes Interval Events: awake, comfortable Allergies: Coded Allergies: No Known Allergies (Unverified , 07/09/13) Objective Last 24 Hour Vital Signs Date Time Temp Pulse Resp B/P Pulse Ox O2 Delivery O2 Flow Rate FiO2 09/27/16 16:03 97.1 68 21 106/63 100 Room Air 09/27/16 12:23 97.5 70 20 110/66 97 Room Air 09/27/16 08:15 97.9 71 20 117/72 99 Room Air 09/27/16 06:00 98/60 09/27/16 04:21 97.5 68 17 98/60 96 Room Air 09/27/16 00:20 98.1 65 19 99/58 97 Room Air 09/26/16 21:41 97/46 09/26/16 20:00 97.9 67 18 97/46 97 Room Air Intake and Output 09/26/16 09/27/16 19:00 07:00 Intake Total 810 ml 330 ml Output Total 250 ml Balance 810 ml 80 ml Intake Free Water 300 ml IV Total 300 ml 300 ml Tube Feeding 210 ml 30 ml Output Urine Total 250 ml General Appearance: WD/WN HEENT: normocephalic Respiratory/Chest: chest wall non-tender, lungs clear Cardiovascular: normal peripheral pulses, normal rate Abdomen: normal bowel sounds, soft, non tender Genitourinary: normal external genitalia Extremities: no cyanosis Microbiology Date/Time Source Procedure Growth Status 09/25/16 19:45 Blood Blood Culture - Preliminary NO GROWTH AFTER 24 HOURS Resulted 09/25/16 19:35 Blood Blood Culture - Preliminary NO GROWTH AFTER 24 HOURS Resulted 09/26/16 07:00 Indwelling Cath Urine Culture - Preliminary NO GROWTH AFTER 24 HOURS Resulted 09/25/16 20:05 Urine,Clean Catch Urine Culture - Preliminary Mixed Gram Positive Organism Resulted Laboratory Tests 09/27/16 07:00: White Blood Count 10.1, Red Blood Count 3.99L, Hemoglobin 12.1, Hematocrit 36.2L , Mean Corpuscular Volume 91, Mean Corpuscular Hemoglobin 30.3, Mean Corpuscular Hemoglobin Concent 33.4, Red Cell Distribution Width 11.7, Platelet Count 216, Mean Platelet Volume 8.4, Neutrophils (%) (Auto) 53.2, Lymphocytes (% ) (Auto) 37.8, Monocytes (%) (Auto) 5.5, Eosinophils (%) (Auto) 2.8, Basophils ( %) (Auto) 0.6, Sodium Level 141, Potassium Level 3.6, Chloride Level 104, Carbon Dioxide Level 22, Anion Gap 15, Blood Urea Nitrogen 13, Creatinine 0.5, Estimat Glomerular Filtration Rate > 60, Glucose Level 301H, Hemoglobin A1c 8.5H , Calcium Level 8.4L, Total Bilirubin < 0.2, Aspartate Amino Transf (AST/SGOT) 56H, Alanine Aminotransferase (ALT/SGPT) 67H, Alkaline Phosphatase 76, Total Protein 7.0, Albumin 3.5, Globulin 3.5, Albumin/Globulin Ratio 1.0, Triglycerides Level 190H, Cholesterol Level 162, LDL Cholesterol 101H, HDL Cholesterol 23, Cholesterol/HDL Ratio 7.0H, Thyroid Stimulating Hormone (TSH) 2.730, Hepatitis A IgM Antibody [Pending], Hepatitis B Surface Antigen [Pending] , Hepatitis B Core IgM Antibody [Pending], Hepatitis C Antibody [Pending] Current Medications Medications (Trade) Dose Ordered Sig/Lenka Route PRN Reason Start Time Stop Time Status Last Admin Dose Admin Acetaminophen (Tylenol) 650 mg Q4H PRN GT T>100.5 09/26/16 11:00 10/26/16 10:59 09/26/16 13:48 Albuterol/ Ipratropium (DuoNeb 0.5-3(2.5)mg/3ml) 3 ml Q4H PRN HHN Shortness of Breath 09/25/16 22:00 09/30/16 21:59 Amitriptyline HCl (Elavil) 25 mg BEDTIME GT 09/26/16 21:00 10/26/16 20:59 09/26/16 20:51 Clonidine HCl (Catapres) 0.1 mg EVERY 8 HOURS GT 09/26/16 14:00 10/26/16 13:59 Dextrose STAT PRN IV Hypoglycemia 09/26/16 08:15 10/26/16 08:14 Heparin Sodium (Porcine) (Heparin 5000 units/ml) 5,000 units EVERY 12 HOURS SUBQ 09/26/16 09:00 10/26/16 08:59 09/27/16 08:21 Insulin Aspart (NovoLOG) BEFORE MEALS AND HS SUBQ 09/26/16 11:30 10/26/16 11:29 09/27/16 16:50 Morphine HCl (Morphine IR) 15 mg Q6H PRN ORAL For Pain 09/25/16 22:00 10/02/16 21:59 Morphine Sulfate (Morphine Sulfate) 2 mg Q4H PRN IVP Moderate Pain (Pain Scale 4-6) 09/25/16 22:00 10/02/16 21:59 Nitroglycerin 0.4 mg 0.4 mg Every 5 Minutes PRN SL Prn Chest Pain 09/25/16 22:00 10/25/16 21:59 Ondansetron HCl (Zofran) 4 mg Q6H PRN IVP Nausea & Vomiting 09/25/16 22:00 10/25/16 21:59 Piperacillin Sod/ Tazobactam Sod/ Sodium Chloride (Zosyn/Sodium Chloride) 110 ml @ 27.5 mls/hr EVERY 8 HOURS IVPB 09/26/16 06:00 10/03/16 05:59 09/27/16 14:24 Polyethylene Glycol (Miralax) 17 gm DAILYPRN PRN GT Constipation 09/26/16 11:00 10/26/16 10:59 Sodium Chloride (0.45% NS 1000ml) 1,000 ml @ 50 mls/hr Q20H IV 09/26/16 08:30 10/26/16 08:29 09/27/16 04:37 Temazepam (Restoril) 15 mg HSPRN PRN GT Insomnia 09/26/16 21:00 10/03/16 20:59 RAMSEY LEO Sep 27, 2016 18:38
[2016-09-28 00:29] VITALS: BP 101/69
[2016-09-28 04:52] VITALS: BP 109/65
[2016-09-28] MEDS: Piperacillin/Tazobactam 3.375 GM in NS 110 ML IVPB SCH ×3 (05:21→22:12)
[2016-09-28] MEDS: NovoLOG Insulin Flexpen SUBQ SCH ×4 (06:09→21:33)
[2016-09-28 08:34] VITALS: BP 115/71
[2016-09-28] MEDS: Heparin 5000 units/ml inj SUBQ SCH ×2 (09:22→21:32)
[2016-09-28 12:13] VITALS: BP 105/69
--- NOTE | 2016-09-28 12:48 | Infectious Diseases Prog Note ---
Assessment/Plan Assessment/Plan A: This is a 45-year-old UTI , probable UCx : mixed GNR Leukocytosis, SP Chest x-ray was negative ultrasound : Cholelithiasis and fatty liver CVA Diabetes mellitus HTN Hypertension Status post cerebrovascular accident Status post craniotomy SP PEG P: cont Zosyn d # 3 / 7 , upon DC will change to Rocephin to complete the course Monitor CBC Monitor BMP Monitor cx ( Bl ) Monitor Cxray Subjective Constitutional: Denies: anorexia, chills, drenching sweats, fatigue, fever, no symptoms, other Allergies: Coded Allergies: No Known Allergies (Unverified , 07/09/13) Objective Vital Signs Last 24 Hour Vital Signs Date Time Temp Pulse Resp B/P Pulse Ox O2 Delivery O2 Flow Rate FiO2 09/28/16 12:13 98.1 75 19 105/69 96 Room Air 09/28/16 08:34 98.2 83 20 115/71 100 Room Air 09/28/16 05:31 110/65 09/28/16 04:52 98.1 66 17 109/65 95 Room Air 09/28/16 00:29 97.9 59 17 101/69 97 Room Air 09/27/16 21:43 134/75 09/27/16 20:38 98.1 68 17 128/73 98 Room Air 09/27/16 16:03 97.1 68 21 106/63 100 Room Air Height (Feet): 5 Height (Inches): 1.00 Weight (Pounds): 140 HEENT: mucous membranes moist Respiratory/Chest: normal breath sounds Cardiovascular: regularly irregular Abdomen: non distended Extremities: no clubbing Microbiology Date/Time Source Procedure Growth Status 09/25/16 19:45 Blood Blood Culture - Preliminary NO GROWTH AFTER 48 HOURS Resulted 09/25/16 19:35 Blood Blood Culture - Preliminary NO GROWTH AFTER 48 HOURS Resulted 09/25/16 22:25 Nasal Nares Left MRSA Culture - Final Staphylococcus Aureus - Mrsa Complete 09/26/16 07:00 Indwelling Cath Urine Culture - Final NO GROWTH AFTER 48 HOURS Complete 09/25/16 20:05 Urine,Clean Catch Urine Culture - Final Mixed Gram Positive Organism Complete 09/25/16 22:25 Rectum VRE Culture - Final NO VANCOMYCIN RESISTANT ENTEROCOCCUS ... Complete Current Medications Medications (Trade) Dose Ordered Sig/Lenka Route PRN Reason Start Time Stop Time Status Last Admin Dose Admin Acetaminophen (Tylenol) 650 mg Q4H PRN GT T>100.5 09/26/16 11:00 10/26/16 10:59 09/26/16 13:48 Albuterol/ Ipratropium (DuoNeb 0.5-3(2.5)mg/3ml) 3 ml Q4H PRN HHN Shortness of Breath 09/25/16 22:00 09/30/16 21:59 Amitriptyline HCl (Elavil) 25 mg BEDTIME GT 09/26/16 21:00 10/26/16 20:59 09/27/16 20:54 Clonidine HCl (Catapres) 0.1 mg EVERY 8 HOURS GT 09/26/16 14:00 10/26/16 13:59 09/28/16 05:31 Dextrose STAT PRN IV Hypoglycemia 09/26/16 08:15 10/26/16 08:14 Heparin Sodium (Porcine) (Heparin 5000 units/ml) 5,000 units EVERY 12 HOURS SUBQ 09/26/16 09:00 10/26/16 08:59 09/28/16 09:22 Insulin Aspart (NovoLOG) BEFORE MEALS AND HS SUBQ 09/26/16 11:30 10/26/16 11:29 09/28/16 11:26 Morphine HCl (Morphine IR) 15 mg Q6H PRN ORAL For Pain 09/25/16 22:00 10/02/16 21:59 Morphine Sulfate (Morphine Sulfate) 2 mg Q4H PRN IVP Moderate Pain (Pain Scale 4-6) 09/25/16 22:00 10/02/16 21:59 Nitroglycerin 0.4 mg 0.4 mg Every 5 Minutes PRN SL Prn Chest Pain 09/25/16 22:00 10/25/16 21:59 Ondansetron HCl (Zofran) 4 mg Q6H PRN IVP Nausea & Vomiting 09/25/16 22:00 10/25/16 21:59 Piperacillin Sod/ Tazobactam Sod/ Sodium Chloride (Zosyn/Sodium Chloride) 110 ml @ 27.5 mls/hr EVERY 8 HOURS IVPB 09/26/16 06:00 10/03/16 05:59 09/28/16 05:21 Polyethylene Glycol (Miralax) 17 gm DAILYPRN PRN GT Constipation 09/26/16 11:00 10/26/16 10:59 Sodium Chloride (0.45% NS 1000ml) 1,000 ml @ 50 mls/hr Q20H IV 09/26/16 08:30 10/26/16 08:29 09/27/16 04:37 Temazepam (Restoril) 15 mg HSPRN PRN GT Insomnia 09/26/16 21:00 10/03/16 20:59 MELVIN VERA M.D. Sep 28, 2016 12:48
[2016-09-28 16:22] VITALS: BP 110/67
--- NOTE | 2016-09-28 18:54 | Pulmonology Progress Note ---
Assessment/Plan Problems: (1) Sepsis (2) Diabetes (3) G tube feedings (4) History of craniotomy (5) History of CVA (cerebrovascular accident) Assessment/Plan continue abx check cultures tolerating feeding wbc lower afebrile dvt prophylaxis Subjective ROS Limited/Unobtainable: No Allergies: Coded Allergies: No Known Allergies (Unverified , 07/09/13) Objective Last 24 Hour Vital Signs Date Time Temp Pulse Resp B/P Pulse Ox O2 Delivery O2 Flow Rate FiO2 09/28/16 16:22 97.7 64 19 110/67 96 Room Air 09/28/16 13:30 110/68 09/28/16 12:13 98.1 75 19 105/69 96 Room Air 09/28/16 08:34 98.2 83 20 115/71 100 Room Air 09/28/16 05:31 110/65 09/28/16 04:52 98.1 66 17 109/65 95 Room Air 09/28/16 00:29 97.9 59 17 101/69 97 Room Air 09/27/16 21:43 134/75 09/27/16 20:38 98.1 68 17 128/73 98 Room Air Intake and Output 09/27/16 09/28/16 19:00 07:00 Intake Total 490 ml 950 ml Output Total 300 ml 300 ml Balance 190 ml 650 ml Free Water 160 ml 100 ml IV Total 550 ml Tube Feeding 330 ml 300 ml Output Urine Total 300 ml 300 ml # Voids 1 # Bowel Movements 1 General Appearance: WD/WN HEENT: normocephalic, atraumatic Respiratory/Chest: chest wall non-tender, lungs clear Breasts: no masses Cardiovascular: normal peripheral pulses, normal rate Abdomen: normal bowel sounds, soft, non tender Genitourinary: normal external genitalia Extremities: no cyanosis Microbiology Date/Time Source Procedure Growth Status 09/25/16 19:45 Blood Blood Culture - Preliminary NO GROWTH AFTER 48 HOURS Resulted 09/25/16 19:35 Blood Blood Culture - Preliminary NO GROWTH AFTER 48 HOURS Resulted 09/25/16 22:25 Nasal Nares Left MRSA Culture - Final Staphylococcus Aureus - Mrsa Complete 09/26/16 07:00 Indwelling Cath Urine Culture - Final NO GROWTH AFTER 48 HOURS Complete 09/25/16 20:05 Urine,Clean Catch Urine Culture - Final Mixed Gram Positive Organism Complete 09/25/16 22:25 Rectum VRE Culture - Final NO VANCOMYCIN RESISTANT ENTEROCOCCUS ... Complete Current Medications Medications (Trade) Dose Ordered Sig/Lenka Route PRN Reason Start Time Stop Time Status Last Admin Dose Admin Acetaminophen (Tylenol) 650 mg Q4H PRN GT T>100.5 09/26/16 11:00 10/26/16 10:59 09/26/16 13:48 Albuterol/ Ipratropium (DuoNeb 0.5-3(2.5)mg/3ml) 3 ml Q4H PRN HHN Shortness of Breath 09/25/16 22:00 09/30/16 21:59 Amitriptyline HCl (Elavil) 25 mg BEDTIME GT 09/26/16 21:00 10/26/16 20:59 09/27/16 20:54 Clonidine HCl (Catapres) 0.1 mg EVERY 8 HOURS GT 09/26/16 14:00 10/26/16 13:59 09/28/16 05:31 Dextrose STAT PRN IV Hypoglycemia 09/26/16 08:15 10/26/16 08:14 Heparin Sodium (Porcine) (Heparin 5000 units/ml) 5,000 units EVERY 12 HOURS SUBQ 09/26/16 09:00 10/26/16 08:59 09/28/16 09:22 Insulin Aspart (NovoLOG) BEFORE MEALS AND HS SUBQ 09/26/16 11:30 10/26/16 11:29 09/28/16 16:22 Morphine HCl (Morphine IR) 15 mg Q6H PRN ORAL For Pain 09/25/16 22:00 10/02/16 21:59 Morphine Sulfate (Morphine Sulfate) 2 mg Q4H PRN IVP Moderate Pain (Pain Scale 4-6) 09/25/16 22:00 10/02/16 21:59 09/28/16 14:16 Nitroglycerin 0.4 mg 0.4 mg Every 5 Minutes PRN SL Prn Chest Pain 09/25/16 22:00 10/25/16 21:59 Ondansetron HCl (Zofran) 4 mg Q6H PRN IVP Nausea & Vomiting 09/25/16 22:00 10/25/16 21:59 Piperacillin Sod/ Tazobactam Sod/ Sodium Chloride (Zosyn/Sodium Chloride) 110 ml @ 27.5 mls/hr EVERY 8 HOURS IVPB 09/26/16 06:00 10/03/16 05:59 09/28/16 13:31 Polyethylene Glycol (Miralax) 17 gm DAILYPRN PRN GT Constipation 09/26/16 11:00 10/26/16 10:59 Sodium Chloride (0.45% NS 1000ml) 1,000 ml @ 50 mls/hr Q20H IV 09/26/16 08:30 10/26/16 08:29 09/27/16 04:37 Temazepam (Restoril) 15 mg HSPRN PRN GT Insomnia 09/26/16 21:00 10/03/16 20:59 RAMSEY LEO Sep 28, 2016 18:53
[2016-09-28 20:09] VITALS: BP 94/55
[2016-09-29] VITALS: BP 103/55
[2016-09-29 04:00] VITALS: BP 99/51
[2016-09-29] MEDS: Piperacillin/Tazobactam 3.375 GM in NS 110 ML IVPB SCH ×2 (05:05→14:47)
[2016-09-29] MEDS: NovoLOG Insulin Flexpen SUBQ SCH ×3 (06:00→17:50)
[2016-09-29 07:11] LABS: BASOPHILS % (AUTO) 0.6 % (0.0-2.0); EOSINOPHILS % (AUTO) 1.3 % (0.0-3.0); LYMPHOCYTES % (AUTO) 33.5 % (20.0-45.0); MEAN CORPUSCULAR HGB CONC 34.7 G/DL (32.0-36.0); MEAN CORPUSCULAR VOLUME 89 FL (80-99); MEAN PLATELET VOLUME 8.6 FL (6.5-10.1); MONOCYTES % (AUTO) 5.1 % (1.0-10.0); NEUTROPHILS % (AUTO) 59.5 % (45.0-75.0); PLATELET COUNT 257 K/UL (150-450); RED BLOOD COUNT 4.42 M/UL (4.20-5.40); RED CELL DISTRIBUTION WIDTH 11.8 % (11.6-14.8); WHITE BLOOD COUNT 11.6 K/UL (4.8-10.8)
[2016-09-29 07:23] LABS: ALANINE AMINOTRANSFERASE 93 U/L (3-33); ALBUMIN/GLOBULIN RATIO 0.9 (1.0-2.7); ANION GAP 16 (5-15); ASPARTATE AMINO TRANSFERASE 82 U/L (5-40); CALCIUM 8.9 mg/dL (8.6-10.2); CARBON DIOXIDE 24 mEQ/L (20-30); CHLORIDE 99 mEQ/L (98-107); CREATININE 0.7 mg/dL (0.5-0.9); GLOMERULAR FILTRATION RATE > 60 mL/min (>60); HEMOLYSIS 3; PHOSPHORUS 3.5 mg/dL (2.5-4.8); POTASSIUM 3.8 mEQ/L (3.4-4.9); SODIUM 139 mEQ/L (135-145); TOTAL PROTEIN 7.5 g/dL (6.6-8.7)
[2016-09-29 08:31] VITALS: BP 101/70
[2016-09-29] MEDS: Heparin 5000 units/ml inj SUBQ SCH (09:58)
--- NOTE | 2016-09-29 10:03 | Infectious Diseases Prog Note ---
Assessment/Plan Assessment/Plan A: This is a 45-year-old UTI , probable UCx : mixed GNR Leukocytosis, mild Chest x-ray was negative ultrasound : Cholelithiasis and fatty liver CVA Diabetes mellitus HTN Hypertension Status post cerebrovascular accident Status post craniotomy SP PEG P: cont Zosyn d # 4 / 7 , upon DC will change to Rocephin to complete the course Monitor CBC Monitor BMP Monitor cx ( Bl ) Monitor Cxray Subjective Constitutional: Denies: anorexia, chills, drenching sweats, fatigue, fever, no symptoms, other Allergies: Coded Allergies: No Known Allergies (Unverified , 07/09/13) Objective Vital Signs Last 24 Hour Vital Signs Date Time Temp Pulse Resp B/P Pulse Ox O2 Delivery O2 Flow Rate FiO2 09/29/16 08:31 98.0 74 21 101/70 99 Room Air 09/29/16 05:57 108/72 09/29/16 04:00 98.1 71 16 99/51 100 Room Air 09/29/16 00:00 98.2 83 20 103/55 100 Room Air 09/28/16 22:00 94/55 09/28/16 20:09 98.4 91 18 94/55 95 Room Air 09/28/16 16:22 97.7 64 19 110/67 96 Room Air 09/28/16 13:30 110/68 09/28/16 12:13 98.1 75 19 105/69 96 Room Air Height (Feet): 5 Height (Inches): 1.00 Weight (Pounds): 140 HEENT: anicteric Respiratory/Chest: no respiratory distress Cardiovascular: regularly irregular Abdomen: no mass Laboratory Tests Test 09/29/16 05:55 White Blood Count 11.6 K/UL (4.8-10.8) H Red Blood Count 4.42 M/UL (4.20-5.40) Hemoglobin 13.7 G/DL (12.0-16.0) Hematocrit 39.5 % (37.0-47.0) Mean Corpuscular Volume 89 FL (80-99) Mean Corpuscular Hemoglobin 31.0 PG (27.0-31.0) Mean Corpuscular Hemoglobin Concent 34.7 G/DL (32.0-36.0) Red Cell Distribution Width 11.8 % (11.6-14.8) Platelet Count 257 K/UL (150-450) Mean Platelet Volume 8.6 FL (6.5-10.1) Neutrophils (%) (Auto) 59.5 % (45.0-75.0) Lymphocytes (%) (Auto) 33.5 % (20.0-45.0) Monocytes (%) (Auto) 5.1 % (1.0-10.0) Eosinophils (%) (Auto) 1.3 % (0.0-3.0) Basophils (%) (Auto) 0.6 % (0.0-2.0) Sodium Level 139 mEQ/L (135-145) Potassium Level 3.8 mEQ/L (3.4-4.9) Chloride Level 99 mEQ/L (98-107) Carbon Dioxide Level 24 mEQ/L (20-30) Anion Gap 16 (5-15) H Blood Urea Nitrogen 11 mg/dL (7-23) Creatinine 0.7 mg/dL (0.5-0.9) Estimat Glomerular Filtration Rate > 60 mL/min (>60) Glucose Level 208 mg/dL (74-106) H Calcium Level 8.9 mg/dL (8.6-10.2) Phosphorus Level 3.5 mg/dL (2.5-4.8) Magnesium Level 2.0 mg/dL (1.7-2.5) Total Bilirubin 0.3 mg/dL (0.0-1.2) Aspartate Amino Transf (AST/SGOT) 82 U/L (5-40) H Alanine Aminotransferase (ALT/SGPT) 93 U/L (3-33) H Alkaline Phosphatase 101 U/L (35-104) Total Protein 7.5 g/dL (6.6-8.7) Albumin 3.7 g/dL (3.5-5.2) Globulin 3.8 g/dL Albumin/Globulin Ratio 0.9 (1.0-2.7) L Current Medications Medications (Trade) Dose Ordered Sig/Lenka Route PRN Reason Start Time Stop Time Status Last Admin Dose Admin Acetaminophen (Tylenol) 650 mg Q4H PRN GT T>100.5 09/26/16 11:00 10/26/16 10:59 09/26/16 13:48 Albuterol/ Ipratropium (DuoNeb 0.5-3(2.5)mg/3ml) 3 ml Q4H PRN HHN Shortness of Breath 09/25/16 22:00 09/30/16 21:59 Amitriptyline HCl (Elavil) 25 mg BEDTIME GT 09/26/16 21:00 10/26/16 20:59 09/28/16 21:30 Clonidine HCl (Catapres) 0.1 mg EVERY 8 HOURS GT 09/26/16 14:00 10/26/16 13:59 09/28/16 05:31 Dextrose STAT PRN IV Hypoglycemia 09/26/16 08:15 10/26/16 08:14 Heparin Sodium (Porcine) (Heparin 5000 units/ml) 5,000 units EVERY 12 HOURS SUBQ 09/26/16 09:00 10/26/16 08:59 09/29/16 09:58 Insulin Aspart (NovoLOG) BEFORE MEALS AND HS SUBQ 09/26/16 11:30 10/26/16 11:29 09/29/16 06:00 Morphine HCl (Morphine IR) 15 mg Q6H PRN ORAL For Pain 09/25/16 22:00 10/02/16 21:59 Morphine Sulfate (Morphine Sulfate) 2 mg Q4H PRN IVP Moderate Pain (Pain Scale 4-6) 09/25/16 22:00 10/02/16 21:59 09/28/16 14:16 Nitroglycerin 0.4 mg 0.4 mg Every 5 Minutes PRN SL Prn Chest Pain 09/25/16 22:00 10/25/16 21:59 Ondansetron HCl (Zofran) 4 mg Q6H PRN IVP Nausea & Vomiting 09/25/16 22:00 10/25/16 21:59 Piperacillin Sod/ Tazobactam Sod/ Sodium Chloride (Zosyn/Sodium Chloride) 110 ml @ 27.5 mls/hr EVERY 8 HOURS IVPB 09/26/16 06:00 10/03/16 05:59 09/29/16 05:05 Polyethylene Glycol (Miralax) 17 gm DAILYPRN PRN GT Constipation 09/26/16 11:00 10/26/16 10:59 Sodium Chloride (0.45% NS 1000ml) 1,000 ml @ 50 mls/hr Q20H IV 09/26/16 08:30 10/26/16 08:29 09/28/16 21:35 Temazepam (Restoril) 15 mg HSPRN PRN GT Insomnia 09/26/16 21:00 10/03/16 20:59 MELVIN VERA M.D. Sep 29, 2016 10:03
[2016-09-29 11:58] VITALS: BP 97/62
[2016-09-29 14:44] VITALS: BP 114/70
[2016-09-29 16:26] VITALS: BP 119/80
[2016-09-29] MEDS ORDERED: CEFTRIAXONE1 G1 IJ (16:31)
--- NOTE | 2016-09-29 16:32 | Pulmonology Progress Note ---
Assessment/Plan Problems: (1) Sepsis (2) Diabetes (3) G tube feedings (4) History of craniotomy (5) History of CVA (cerebrovascular accident) Assessment/Plan continue abx check cultures tolerating feeding wbc lower afebrile dvt prophylaxis\ dc to [facility] to complete the course of abx at the facility Subjective ROS Limited/Unobtainable: No Constitutional: Reports: no symptoms HEENT: Repors: no symptoms Respiratory: Reports: no symptoms Cardiovascular: Reports: no symptoms Allergies: Coded Allergies: No Known Allergies (Unverified , 07/09/13) Objective Last 24 Hour Vital Signs Date Time Temp Pulse Resp B/P Pulse Ox O2 Delivery O2 Flow Rate FiO2 09/29/16 14:44 114/70 09/29/16 14:00 114/70 09/29/16 11:58 97.8 78 20 97/62 97 Room Air 09/29/16 08:31 98.0 74 21 101/70 99 Room Air 09/29/16 05:57 108/72 09/29/16 04:00 98.1 71 16 99/51 100 Room Air 09/29/16 00:00 98.2 83 20 103/55 100 Room Air 09/28/16 22:00 94/55 09/28/16 20:09 98.4 91 18 94/55 95 Room Air Intake and Output 09/28/16 09/29/16 19:00 07:00 Intake Total 1220.0 ml 587.5 ml Output Total 650 ml 400 ml Balance 570.0 ml 187.5 ml Intake Oral 865 ml IV Total 355.0 ml 587.5 ml Output Urine Total 650 ml 400 ml # Voids 1 # Bowel Movements 1 General Appearance: WD/WN HEENT: normocephalic, atraumatic Respiratory/Chest: chest wall non-tender, lungs clear Cardiovascular: normal peripheral pulses, normal rate Abdomen: normal bowel sounds, soft, non tender Extremities: no cyanosis Neurologic/Psychiatric: 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 Laboratory Tests 09/29/16 05:55: White Blood Count 11.6H, Red Blood Count 4.42, Hemoglobin 13.7, Hematocrit 39.5 , Mean Corpuscular Volume 89, Mean Corpuscular Hemoglobin 31.0, Mean Corpuscular Hemoglobin Concent 34.7, Red Cell Distribution Width 11.8, Platelet Count 257, Mean Platelet Volume 8.6, Neutrophils (%) (Auto) 59.5, Lymphocytes (% ) (Auto) 33.5, Monocytes (%) (Auto) 5.1, Eosinophils (%) (Auto) 1.3, Basophils ( %) (Auto) 0.6, Sodium Level 139, Potassium Level 3.8, Chloride Level 99, Carbon Dioxide Level 24, Anion Gap 16H, Blood Urea Nitrogen 11, Creatinine 0.7, Estimat Glomerular Filtration Rate > 60, Glucose Level 208H, Calcium Level 8.9, Phosphorus Level 3.5, Magnesium Level 2.0, Total Bilirubin 0.3, Aspartate Amino Transf (AST/SGOT) 82H, Alanine Aminotransferase (ALT/SGPT) 93H, Alkaline Phosphatase 101, Total Protein 7.5, Albumin 3.7, Globulin 3.8, Albumin/Globulin Ratio 0.9L Current Medications Medications (Trade) Dose Ordered Sig/Lenka Route PRN Reason Start Time Stop Time Status Last Admin Dose Admin Acetaminophen (Tylenol) 650 mg Q4H PRN GT T>100.5 09/26/16 11:00 10/26/16 10:59 09/26/16 13:48 Albuterol/ Ipratropium (DuoNeb 0.5-3(2.5)mg/3ml) 3 ml Q4H PRN HHN Shortness of Breath 09/25/16 22:00 09/30/16 21:59 Amitriptyline HCl (Elavil) 25 mg BEDTIME GT 09/26/16 21:00 10/26/16 20:59 09/28/16 21:30 Clonidine HCl (Catapres) 0.1 mg EVERY 8 HOURS GT 09/26/16 14:00 10/26/16 13:59 09/28/16 05:31 Dextrose STAT PRN IV Hypoglycemia 09/26/16 08:15 10/26/16 08:14 Heparin Sodium (Porcine) (Heparin 5000 units/ml) 5,000 units EVERY 12 HOURS SUBQ 09/26/16 09:00 10/26/16 08:59 09/29/16 09:58 Insulin Aspart (NovoLOG) BEFORE MEALS AND HS SUBQ 09/26/16 11:30 10/26/16 11:29 09/29/16 12:09 Morphine HCl (Morphine IR) 15 mg Q6H PRN ORAL For Pain 09/25/16 22:00 10/02/16 21:59 Morphine Sulfate (Morphine Sulfate) 2 mg Q4H PRN IVP Moderate Pain (Pain Scale 4-6) 09/25/16 22:00 10/02/16 21:59 09/28/16 14:16 Nitroglycerin 0.4 mg 0.4 mg Every 5 Minutes PRN SL Prn Chest Pain 09/25/16 22:00 10/25/16 21:59 Ondansetron HCl (Zofran) 4 mg Q6H PRN IVP Nausea & Vomiting 09/25/16 22:00 10/25/16 21:59 Piperacillin Sod/ Tazobactam Sod/ Sodium Chloride (Zosyn/Sodium Chloride) 110 ml @ 27.5 mls/hr EVERY 8 HOURS IVPB 09/26/16 06:00 10/03/16 05:59 09/29/16 14:47 Polyethylene Glycol (Miralax) 17 gm DAILYPRN PRN GT Constipation 09/26/16 11:00 10/26/16 10:59 Sodium Chloride (0.45% NS 1000ml) 1,000 ml @ 50 mls/hr Q20H IV 09/26/16 08:30 10/26/16 08:29 09/28/16 21:35 Temazepam (Restoril) 15 mg HSPRN PRN GT Insomnia 09/26/16 21:00 10/03/16 20:59 RAMSEY LEO Sep 29, 2016 16:32
[2016-09-29] MEDS ORDERED: 1/2 NS 1000ml IV ONE ×2 (19:44)
--- NOTE | 2016-09-30 12:13 | Discharge Summary ---
Discharge Summary Hospital Course Date of Admission Sep 25, 2016 at 20:53 Date of Discharge Sep 29, 2016 at 19:45 Admitting Diagnosis SEPSIS, UTI HPI Shana Cramer is a 45 year old female who was admitted on Sep 25, 2016 at 20: 53 for Sepsis,Urinary Tract Infection Hospital Course [id number] Discharge Discharge Disposition Patient was discharged to SNF/Subacute Facility(03) Discharge Diagnoses: Ernestine Keenan NP Sep 30, 2016 12:13
--- NOTE | 2016-09-30 13:53 | Diagnostic Imaging Report ---
Indications: Dysphagia Technique: Multiphasic barium dysphagia study was performed under fluoroscopic control with Barbara Roman speech pathologist. Cinegraphic images were obtained. Total fluoroscopy time: 189.1 sec Dose-area product: 0.25 mGy-m2 Findings: Comparison: 2013 Oral and pharyngeal phases of swallowing demonstrate multiple mechanical abnormalities, as enumerated on speech pathology evaluation form. The patient demonstrates no laryngeal penetration or tracheal aspiration of any consistency of barium tested. There is mild barium coating of pharyngeal structures after swallowing.. Esophageal phase of swallowing demonstrates no obvious barium pooling. IMPRESSION: Abnormal oropharyngeal mechanics with no laryngeal penetration or tracheal aspiration in the tested barium consistency, improved from previous exam. Mild post swallow pharyngeal residue, improved No obvious esophageal dysmotility, improved Recommendation per speech pathology evaluation form.
--- NOTE | 2016-09-30 17:45 | Discharge Summary 2 SIG ---
DATE OF ADMISSION: 09/25/2016 DATE OF DISCHARGE: 09/29/2016 TECHNICAL PROJECT LEAD: Rj Haney M.D. BRIEF HOSPITAL COURSE: The patient is a 45-year-old female with history of CVA, status post craniectomy, diabetes mellitus, hypertension, and dysphagia on G-tube, presented to ED for abnormal labs. [facility], WBC was elevated to 17,000 and was started on broad-spectrum antibiotics. The patient was transferred for further evaluation. Workup at ED showed low-grade fever and leukocytosis. Lactic acid was within normal limits. Troponin was negative. Urinalysis was grossly positive for urinary tract infection. Chest x-ray done showed no acute cardiopulmonary pathology. LFTs were elevated. She was pancultured and was started on empiric antibiotics and was admitted for probable sepsis, urinary tract infection, and encephalopathy. She was followed by Infectious Disease specialist. Urine culture with growth of gram negative rods. Ultrasound of the abdomen showed cholelithiasis with fatty liver. She was initially given Zosyn. Hepatitis panel was negative. Repeat urine culture showed no growth. She was eventually discharged to [facility] living facility, to continue [facility] Rocephin [facility]. FINAL DIAGNOSES: 1. Sepsis. 2. Urinary tract infection with gram-negative rods. 3. Hypertension. 4. Old cerebrovascular accident. 5. Status post craniectomy. 6. Dysphagia with percutaneous endoscopic gastrostomy feeding. 7. Elevated liver transaminases. 8. Acute on chronic encephalopathy. 9. Proteinuria. 10. Diabetes mellitus, out of control. Sanjay Quintanilla M.D. I have been assigned to dictate discharge summary on this account and I was not involved in the patient's management. Ernestine Keenan N.P. DR: MARÍA ELENA JOB#: [id number] CC: JOSE
== END 2016-09-29 19:45 | DRG 720 ==
LOC: EDBD 19:10 → EMR 19:15 → EDBEDREQ 20:53 → 3E 20:53 → EDBEDREQ 23:01 → 4E 09-28 10:50
DX: A41.9 Sepsis, unspecified organism (principal); G93.40 Encephalopathy, unspecified; E11.65 Type 2 diabetes mellitus with hyperglycemia; K76.0 Fatty (change of) liver, not elsewhere classified; N39.0 Urinary tract infection, site not specified; B96.89 Other specified bacterial agents as the cause of diseases classified elsewhere; K80.20 Calculus of gallbladder without cholecystitis without obstruction; I10 Essential (primary) hypertension; Z86.73 Personal history of transient ischemic attack (TIA), and cerebral infarction without residual deficits; R13.10 Dysphagia, unspecified; Z43.1 Encounter for attention to gastrostomy
CPT/HCPCS: 36415; 71010; 74230; 76700; 80053; 80061; 81001; 81003; 82550; 82553; 82962; 83036; 83605; 83735; 84100; 84443; 84484; 85025; 85610; 85730; 86705; 86709; 86803; 87040; 87081; 87086; 87340; J1815